=== PATIENT | female | born 1945 | race African-American/Black ===

== ENCOUNTER 2017-01-19 20:27 | Inpatient (IN) | payer MEDICARE, OTHER ==
[~2017-01-19] VITALS: Ht 170.2 cm; Wt 77.1 kg
[2017-01-19] MEDS ORDERED: Azithromycin 500 MG in D5W 275 ML IVPB ONE (20:45)
[2017-01-19] MEDS ORDERED: Azithromycin 500mg Inj IV ONE (20:58)
[2017-01-19] MEDS: Albuterol ud Inhalation HHN SCH ×3 (21:12→21:47)
[2017-01-19] MEDS: Ipratropium 0.02% Inh Soln 2.5ml UD HHN SCH ×3 (21:12→21:47)
[2017-01-19 21:13] LABS: MEAN CORPUSCULAR HEMOGLOBIN 32.4 PG (27.0-31.0); MEAN CORPUSCULAR HGB CONC 30.5 G/DL (32.0-36.0); MEAN CORPUSCULAR VOLUME 106 FL (80-99); MEAN PLATELET VOLUME 8.2 FL (6.5-10.1); PLATELET COUNT 169 K/UL (150-450); RED BLOOD COUNT 3.93 M/UL (4.20-5.40); RED CELL DISTRIBUTION WIDTH 13.6 % (11.6-14.8); WHITE BLOOD COUNT 9.9 K/UL (4.8-10.8)
--- NOTE | 2017-01-19 21:25 | Emergency Room Report ---
History of Present Illness General Chief Complaint: Dyspnea/Respdistress Source: Patient, Medical Record Present Illness HPI 58YOF BIBEMS for 3 days of cough, SOB Denies fever/chills Known COPD on 5L O2 NC at home Also with HTN Allergies: Coded Allergies: No Known Allergies (Unverified , 01/19/17) Patient History Past Medical History: HTN, COPD Past Surgical History: none Pertinent Family History: none Social History: Denies: alcohol use, drug use, smoking Last Menstrual Period: post Now: No Immunizations: UTD Reviewed Nursing Documentation: PMH: Agreed, PSxH: Agreed Nursing Documentation-PMH Past Medical History: No History, Except For Hx Hypertension: Yes Hx COPD: Yes Review of Systems All Other Systems: negative except mentioned in HPI Physical Exam Vital Signs Date Time Temp Pulse Resp B/P Pulse Ox O2 Delivery O2 Flow Rate FiO2 01/19/17 20:22 97.9 120 30 165/96 87 Room Air Sp02 EP Interpretation: reviewed, abnormal General Appearance: normal inspection, well appearing, no apparent distress, alert, GCS 15, non-toxic Head: normocephalic, atraumatic Eyes: bilateral eye EOMI, bilateral eye PERRL ENT: normal ENT inspection, hearing grossly normal, normal voice Neck: normal inspection Respiratory: normal inspection, lungs clear, no respiratory distress, no retraction, no accessory muscle use, no wheezing, decreased breath sounds, speaking full sentences Cardiovascular #1: regular rate, rhythm, no edema Gastrointestinal: normal inspection, normal bowel sounds, non tender, soft, no guarding, no hernia Genitourinary: no CVA tenderness Musculoskeletal: normal inspection, back normal, normal range of motion, Edelmira' s Sign negative Neurologic: normal inspection, alert, oriented x3, responsive, circus roustabout III-XII nml as tested, motor strength/tone normal, speech normal Psychiatric: normal inspection, judgement/insight normal, mood/affect normal Skin: normal inspection, normal color, no rash Medical Decision Making Medicare Attestation I Aspen Hatfield MD hereby attest that the medical record entry for date of service, 01/18/17 accurately reflects signatures/notations that I made in my capacity as MD when I treated/diagnosed the above listed Medicare beneficiary. I attest that this information is true, accurate and complete to the best of my knowledge. I understand that any falsification, omission, or concealment of material fact may subject me to administrative, civil, or criminal liability. This patient warrants hospital admission for extreme of age and has a condition that cannot be treated as outpatient. Diagnostic Impression: Primary Impression: Dyspnea Qualified Codes: R06.00 - Dyspnea, unspecified Additional Impression: COPD with acute exacerbation ER Course COPD exacerbation - VS with hypoxia - Labs: No leuks. H&h stable. No metabolic abnormalities. Mild elevation in CO2 - CXR: No obvious PNA - ECG c/w obstructive lung disease otherwise NSR. No ischemia - Improved with nebs, steroids - IV Azithro given - Blood Cx pending Endorsed to Dr Pozo for admission at 930pm EKG Diagnostic Results Rate: normal Rhythm: NSR ST Segments: no acute changes Other Impression RA enlargement ASA given to the pt in ED: No Rhythm Strip Diag. Results EP Interpretation: yes Rate: 90 Rhythm: NSR, no PVC's, no ectopy Chest X-Ray Diagnostic Results Chest X-Ray Diagnostic Results : Chest X-Ray Ordered: Yes # of Views/Limited/Complete: 1 View Indication: Shortness of Breath EP Interpretation: Yes Interpretation: no consolidation, no effusion, no pneumothorax, no acute cardiopulmonary disease Impression: No acute disease Interpreting ER Provider: Electronically signed by Dr Hatfield Last Vital Signs Date Time Temp Pulse Resp B/P Pulse Ox O2 Delivery O2 Flow Rate FiO2 01/19/17 20:37 120 30 Room Air 01/19/17 20:22 97.9 165/96 87 Status: improved Disposition: ADMITTED INPATIENT Condition: Serious Scripts Unable to Obtain Active Prescriptions or Reported Meds ASPEN HATFIELD M.D. Jan 19, 2017 21:25
[2017-01-19 21:29] LABS: ALANINE AMINOTRANSFERASE 9 U/L (3-33); ALBUMIN/GLOBULIN RATIO 1.7 (1.0-2.7); ASPARTATE AMINO TRANSFERASE 18 U/L (5-40); CALCIUM 9.9 mg/dL (8.6-10.2); CHLORIDE 91 mEQ/L (98-107); CREATININE 1.1 mg/dL (0.5-0.9); HEMOLYSIS 55; POTASSIUM 4.4 mEQ/L (3.4-4.9); SODIUM 145 mEQ/L (135-145); TOTAL PROTEIN 7.1 g/dL (6.6-8.7); TROPONIN I < 0.30 ng/mL (<=0.30)
[2017-01-19 21:45] LABS: ANION GAP 12 (5-15)
[2017-01-19 21:54] LABS: BAND NEUTROPHILS % (MANUAL) 3 % (0-8); BASOPHILS % (MANUAL) 0 % (0-2); CARBON DIOXIDE 42 mEQ/L (20-30); EOSINOPHILS % (MANUAL) 0 % (0-3); GLOMERULAR FILTRATION RATE > 60 mL/min (>60); LYMPHOCYTES % (MANUAL) 2 % (20-45); MACROCYTES 1+; NEUTROPHILS % (MANUAL) 87 % (45-75); PLATELET ESTIMATE ADEQUATE; PLATELET MORPHOLOGY NORMAL; TOTAL CELLS COUNTED 100
[2017-01-19] MEDS ORDERED: Promethazine/Codeine 5ml UD ORAL PRN (22:30)
[2017-01-19] MEDS ORDERED: DuoNeb 0.5-3(2.5)mg/3ml neb HHN PRN (22:30)
[2017-01-19] MEDS ORDERED: Morphine Sulfate 2mg/ml Inj IVP PRN (22:30)
[2017-01-19] MEDS ORDERED: LORazepam Inj 2mg/ml 1ml IV PRN (22:30)
[2017-01-19] MEDS ORDERED: Ketorolac 30mg Inj IV PRN (22:30)
[2017-01-19] MEDS ORDERED: Nitroglycerin Subl 0.4mg tab (Bottle Of 25) SL PRN (22:30)
[2017-01-19 22:52] VITALS: BP 109/77
[2017-01-19 23:51] VITALS: BP 115/61
[2017-01-20] MEDS: Solu-MEDROL 125mg Inj IV SCH ×5 (01:15→23:40)
[2017-01-20] MEDS ORDERED: Piperacillin/Tazobactam 2.25 GM in D5W 55 ML IV SCH (06:00)
[2017-01-20] MEDS: Zosyn 3.375gm q8h **Extended infusion IVPB SCH ×6 (08:27→21:42)
[2017-01-20 08:28] VITALS: BP 132/63
[2017-01-20] MEDS: Theophylline ER 100mg ORAL SCH ×2 (09:06→20:37)
[2017-01-20] MEDS: Heparin 5000 units/ml inj SUBQ SCH ×2 (09:07→20:39)
--- NOTE | 2017-01-20 09:12 | Diagnostic Imaging Report ---
Indications: Shortness of breath Technique: Portable AP chest Findings: Comparison: None Cardiac silhouette enlarged. Mild pulmonary vascular redistribution, bilateral interstitial prominence. No pleural abnormality. Aortic arch mildly calcified. Osteophytes thoracic spine. IMPRESSION: Findings suggest mild congestive heart failure Aortosclerosis Degenerative spondylosis
[2017-01-20 12:00] VITALS: BP 125/61
--- NOTE | 2017-01-20 13:21 | History and Physical ---
History of Present Illness General Date patient seen: Jan 20, 2017 Reason for Hospitalization: Dyspnea/Respdistress Present Illness HPI 71 year old female with hx of COPD, smoking, presented to ER by paramedics with CC of SOB, for a few days. She doesn't have any phlegm. doesn't recall having fever, chills for flue symptoms. She received respiratory treatment, which helped her somewhat. she is admitted for further evaluation. Allergies: Coded Allergies: No Known Allergies (Unverified , 01/19/17) Medication History Unable to Obtain Active Prescriptions or Reported Meds Patient History Healthcare decision maker Resuscitation status Full Code Advanced Directive on File No Past Medical/Surgical History Past Medical/Surgical History: (1) COPD (chronic obstructive pulmonary disease) Review of Systems All Other Systems: negative except mentioned in HPI Physical Exam General Appearance: WD/WN Lines, tubes and drains: peripheral HEENT: normocephalic, atraumatic Neck: non-tender, normal alignment Respiratory/Chest: rhonchi - bilaterally, expiratory wheezing Cardiovascular/Chest: normal peripheral pulses, normal rate Genitourinary/Rectal: normal genital exam Extremities: normal range of motion Last 24 Hour Vital Signs Date Time Temp Pulse Resp B/P Pulse Ox O2 Delivery O2 Flow Rate FiO2 01/20/17 12:00 102 01/20/17 08:28 97.5 57 18 132/63 99 Nasal Cannula 3.0 01/20/17 08:01 Nasal Cannula 2.0 28 01/20/17 08:00 86 22 Nasal Cannula 2.0 28 01/20/17 08:00 90 Nasal Cannula 2.0 28 01/20/17 08:00 101 01/20/17 05:15 Nasal Cannula 2.0 28 01/20/17 05:14 92 Nasal Cannula 2.0 28 01/20/17 05:13 81 20 Nasal Cannula 2.0 28 01/20/17 04:40 3.0 01/20/17 04:00 87 01/20/17 00:00 102 01/20/17 00:00 3.0 01/19/17 23:51 97.7 89 20 115/61 93 Room Air 01/19/17 23:29 97.9 30 109/77 87 Room Air 01/19/17 22:52 97.9 30 109/77 87 Room Air 01/19/17 20:37 120 30 Room Air 01/19/17 20:22 97.9 120 30 165/96 87 Room Air Intake and Output 01/19/17 01/20/17 19:00 07:00 Intake Total 0 ml Balance 0 ml Intake Oral 0 ml # Voids 3 Laboratory Tests Test 01/19/17 20:57 White Blood Count 9.9 K/UL (4.8-10.8) Red Blood Count 3.93 M/UL (4.20-5.40) L Hemoglobin 12.7 G/DL (12.0-16.0) Hematocrit 41.7 % (37.0-47.0) Mean Corpuscular Volume 106 FL (80-99) H Mean Corpuscular Hemoglobin 32.4 PG (27.0-31.0) H Mean Corpuscular Hemoglobin Concent 30.5 G/DL (32.0-36.0) L Red Cell Distribution Width 13.6 % (11.6-14.8) Platelet Count 169 K/UL (150-450) Mean Platelet Volume 8.2 FL (6.5-10.1) Neutrophils (%) (Auto) % (45.0-75.0) Lymphocytes (%) (Auto) % (20.0-45.0) Monocytes (%) (Auto) % (1.0-10.0) Eosinophils (%) (Auto) % (0.0-3.0) Basophils (%) (Auto) % (0.0-2.0) Differential Total Cells Counted 100 Neutrophils % (Manual) 87 % (45-75) H Lymphocytes % (Manual) 2 % (20-45) L Monocytes % (Manual) 8 % (1-10) Eosinophils % (Manual) 0 % (0-3) Basophils % (Manual) 0 % (0-2) Band Neutrophils 3 % (0-8) Platelet Estimate Adequate Platelet Morphology Normal Macrocytosis 1+ Sodium Level 145 mEQ/L (135-145) Potassium Level 4.4 mEQ/L (3.4-4.9) Chloride Level 91 mEQ/L (98-107) L Carbon Dioxide Level 42 mEQ/L (20-30) *H Anion Gap 12 (5-15) Blood Urea Nitrogen 16 mg/dL (7-23) Creatinine 1.1 mg/dL (0.5-0.9) H Estimat Glomerular Filtration Rate > 60 mL/min (>60) Glucose Level 166 mg/dL (74-106) H Calcium Level 9.9 mg/dL (8.6-10.2) Total Bilirubin 0.4 mg/dL (0.0-1.2) Aspartate Amino Transf (AST/SGOT) 18 U/L (5-40) Alanine Aminotransferase (ALT/SGPT) 9 U/L (3-33) Alkaline Phosphatase 62 U/L (35-104) Total Creatine Kinase 58 U/L (26-140) Creatine Kinase MB 2.0 ng/mL (< 3.8) Creatine Kinase MB Relative Index 3.4 Troponin I < 0.30 ng/mL (<=0.30) Pro-B-Type Natriuretic Peptide 347 pg/mL (0-125) H Total Protein 7.1 g/dL (6.6-8.7) Albumin 4.5 g/dL (3.5-5.2) Globulin 2.6 g/dL Albumin/Globulin Ratio 1.7 (1.0-2.7) Height (Feet): 5 Height (Inches): 7.00 Weight (Pounds): 170 Medications Current Medications Medications (Trade) Dose Ordered Sig/Moose Route PRN Reason Start Time Stop Time Status Last Admin Dose Admin Albuterol/ Ipratropium (DuoNeb 0.5-3(2.5)mg/3ml) 3 ml Q4H PRN HHN dyspnea 01/19/17 22:30 01/24/17 22:29 Dextrose STAT PRN IV Hypoglycemia 01/19/17 22:30 02/18/17 22:29 Heparin Sodium (Porcine) (Heparin 5000 units/ml) 5,000 units EVERY 12 HOURS SUBQ 01/20/17 09:00 02/19/17 08:59 01/20/17 09:07 Ketorolac Tromethamine (Toradol 30mg) 30 mg Q8H PRN IV moderate pain 4-6 01/19/17 22:30 01/24/17 22:29 Lorazepam (Ativan 2mg/ml 1ml) 0.5 mg Q4H PRN IV For Anxiety 01/19/17 22:30 01/26/17 22:29 Methylprednisolone Sodium Succinate (Solu-MEDROL) 60 mg EVERY 6 HOURS IV 01/20/17 00:00 02/19/17 00:00 01/20/17 12:20 Morphine Sulfate (Morphine Sulfate) 2 mg Q4H PRN IVP severe pain 7-10 01/19/17 22:30 01/26/17 22:29 Nitroglycerin (Ntg) 0.4 mg Q5M X 3 DOSES PRN SL Prn Chest Pain 01/19/17 22:30 02/18/17 22:29 Ondansetron HCl (Zofran) 4 mg Q6H PRN IVP Nausea & Vomiting 01/19/17 22:30 02/18/17 22:29 Piperacillin Sod/ Tazobactam Sod/ Dextrose (Zosyn/D5W) 110 ml @ 27.5 mls/hr EVERY 8 HOURS IVPB 01/20/17 06:00 01/27/17 05:59 01/20/17 08:27 Promethazine HCl/ Codeine (Phenergan with Codeine) 5 ml Q6H PRN ORAL cough 01/19/17 22:30 02/18/17 22:29 Temazepam (Restoril) 15 mg HSPRN PRN ORAL Insomnia 01/19/17 22:30 01/26/17 22:29 Theophylline (Bro-Dur) 100 mg EVERY 12 HOURS ORAL 01/20/17 09:00 02/19/17 08:59 01/20/17 09:06 Assessment/Plan Problem List: (1) COPD with acute exacerbation ICD Codes: J44.1 - Chronic obstructive pulmonary disease with (acute) exacerbation SNOMED: 104437576 (2) Purulent bronchitis ICD Codes: J41.1 - Mucopurulent chronic bronchitis SNOMED: 16632369 (3) Cardiomegaly ICD Codes: I51.7 - Cardiomegaly SNOMED: 2510529 Assessment/Plan IV steroids sputum for c/s IV abx echo Cardiac evaluation titrate fio2 to sat of 92% KAYLI FARIAS Jan 20, 2017 13:21
--- NOTE | 2017-01-20 15:42 | Cardiology Progress Note ---
Assessment/Plan Assessment/Plan [id number] Objective Last 24 Hour Vital Signs Date Time Temp Pulse Resp B/P Pulse Ox O2 Delivery O2 Flow Rate FiO2 01/20/17 12:00 98.2 90 22 125/61 95 Nasal Cannula 3.0 01/20/17 12:00 102 01/20/17 08:28 97.5 57 18 132/63 99 Nasal Cannula 3.0 01/20/17 08:01 Nasal Cannula 2.0 28 01/20/17 08:00 86 22 Nasal Cannula 2.0 01/20/17 08:00 90 Nasal Cannula 2.0 28 01/20/17 08:00 101 01/20/17 05:15 Nasal Cannula 2.0 28 01/20/17 05:14 92 Nasal Cannula 2.0 01/20/17 05:13 81 20 Nasal Cannula 2.0 01/20/17 04:40 3.0 01/20/17 04:00 87 01/20/17 00:00 102 01/20/17 00:00 3.0 01/19/17 23:51 97.7 89 20 115/61 93 Room Air 01/19/17 23:29 97.9 30 109/77 87 Room Air 01/19/17 22:52 97.9 30 109/77 87 Room Air 01/19/17 20:37 120 30 Room Air 01/19/17 20:22 97.9 120 30 165/96 87 Room Air Intake and Output 01/19/17 01/20/17 19:00 07:00 Intake Total 0 ml Balance 0 ml Intake Oral 0 ml # Voids 3 Laboratory Tests Test 01/19/17 20:57 White Blood Count 9.9 K/UL (4.8-10.8) Red Blood Count 3.93 M/UL (4.20-5.40) L Hemoglobin 12.7 G/DL (12.0-16.0) Hematocrit 41.7 % (37.0-47.0) Mean Corpuscular Volume 106 FL (80-99) H Mean Corpuscular Hemoglobin 32.4 PG (27.0-31.0) H Mean Corpuscular Hemoglobin Concent 30.5 G/DL (32.0-36.0) L Red Cell Distribution Width 13.6 % (11.6-14.8) Platelet Count 169 K/UL (150-450) Mean Platelet Volume 8.2 FL (6.5-10.1) Neutrophils (%) (Auto) % (45.0-75.0) Lymphocytes (%) (Auto) % (20.0-45.0) Monocytes (%) (Auto) % (1.0-10.0) Eosinophils (%) (Auto) % (0.0-3.0) Basophils (%) (Auto) % (0.0-2.0) Differential Total Cells Counted 100 Neutrophils % (Manual) 87 % (45-75) H Lymphocytes % (Manual) 2 % (20-45) L Monocytes % (Manual) 8 % (1-10) Eosinophils % (Manual) 0 % (0-3) Basophils % (Manual) 0 % (0-2) Band Neutrophils 3 % (0-8) Platelet Estimate Adequate Platelet Morphology Normal Macrocytosis 1+ Sodium Level 145 mEQ/L (135-145) Potassium Level 4.4 mEQ/L (3.4-4.9) Chloride Level 91 mEQ/L (98-107) L Carbon Dioxide Level 42 mEQ/L (20-30) *H Anion Gap 12 (5-15) Blood Urea Nitrogen 16 mg/dL (7-23) Creatinine 1.1 mg/dL (0.5-0.9) H Estimat Glomerular Filtration Rate > 60 mL/min (>60) Glucose Level 166 mg/dL (74-106) H Calcium Level 9.9 mg/dL (8.6-10.2) Total Bilirubin 0.4 mg/dL (0.0-1.2) Aspartate Amino Transf (AST/SGOT) 18 U/L (5-40) Alanine Aminotransferase (ALT/SGPT) 9 U/L (3-33) Alkaline Phosphatase 62 U/L (35-104) Total Creatine Kinase 58 U/L (26-140) Creatine Kinase MB 2.0 ng/mL (< 3.8) Creatine Kinase MB Relative Index 3.4 Troponin I < 0.30 ng/mL (<=0.30) Pro-B-Type Natriuretic Peptide 347 pg/mL (0-125) H Total Protein 7.1 g/dL (6.6-8.7) Albumin 4.5 g/dL (3.5-5.2) Globulin 2.6 g/dL Albumin/Globulin Ratio 1.7 (1.0-2.7) JAZLYN PARADA Jan 20, 2017 15:42
--- NOTE | 2017-01-20 16:06 | Consultation ---
History of Present Illness General Chief Complaint: Dyspnea/Respdistress Present Illness HPI the pt is 71 yo female who came with shortness of breath. I was consulted in er the pt was anxious and stated that she cannot breath. the pt legitimately has copd. she has episodes of anxiety and insomnia. the pt is stable at baseline she was prescribed ativan Allergies: Coded Allergies: No Known Allergies (Unverified , 01/19/17) Medication History Unable to Obtain Active Prescriptions or Reported Meds Patient History History Provided By: Patient, Significant Other, PMD Healthcare decision maker Resuscitation status Full Code Advanced Directive on File No Past Medical/Surgical History Past Medical/Surgical History: (1) Dyspnea (2) COPD (chronic obstructive pulmonary disease) (3) Purulent bronchitis (4) Cardiomegaly (5) COPD with acute exacerbation Review of Systems Constitutional: Reports: malaise, weakness Psychiatric: Reports: anxiety, prior hx Physical Exam General Appearance: no apparent distress, alert, mild distress Neurologic: alert, oriented x 3, responsive, depressed affect Last 24 Hour Vital Signs Date Time Temp Pulse Resp B/P Pulse Ox O2 Delivery O2 Flow Rate FiO2 01/20/17 12:00 98.2 90 22 125/61 95 Nasal Cannula 3.0 01/20/17 12:00 102 01/20/17 08:28 97.5 57 18 132/63 99 Nasal Cannula 3.0 01/20/17 08:01 Nasal Cannula 2.0 28 01/20/17 08:00 86 22 Nasal Cannula 2.0 28 01/20/17 08:00 90 Nasal Cannula 2.0 28 01/20/17 08:00 101 01/20/17 05:15 Nasal Cannula 2.0 28 01/20/17 05:14 92 Nasal Cannula 2.0 28 01/20/17 05:13 81 20 Nasal Cannula 2.0 28 01/20/17 04:40 3.0 01/20/17 04:00 87 01/20/17 00:00 102 01/20/17 00:00 3.0 01/19/17 23:51 97.7 89 20 115/61 93 Room Air 01/19/17 23:29 97.9 30 109/77 87 Room Air 01/19/17 22:52 97.9 30 109/77 87 Room Air 01/19/17 20:37 120 30 Room Air 01/19/17 20:22 97.9 120 30 165/96 87 Room Air Intake and Output 01/19/17 01/20/17 19:00 07:00 Intake Total 0 ml Balance 0 ml Intake Oral 0 ml # Voids 3 Laboratory Tests Test 01/19/17 20:57 White Blood Count 9.9 K/UL (4.8-10.8) Red Blood Count 3.93 M/UL (4.20-5.40) L Hemoglobin 12.7 G/DL (12.0-16.0) Hematocrit 41.7 % (37.0-47.0) Mean Corpuscular Volume 106 FL (80-99) H Mean Corpuscular Hemoglobin 32.4 PG (27.0-31.0) H Mean Corpuscular Hemoglobin Concent 30.5 G/DL (32.0-36.0) L Red Cell Distribution Width 13.6 % (11.6-14.8) Platelet Count 169 K/UL (150-450) Mean Platelet Volume 8.2 FL (6.5-10.1) Neutrophils (%) (Auto) % (45.0-75.0) Lymphocytes (%) (Auto) % (20.0-45.0) Monocytes (%) (Auto) % (1.0-10.0) Eosinophils (%) (Auto) % (0.0-3.0) Basophils (%) (Auto) % (0.0-2.0) Differential Total Cells Counted 100 Neutrophils % (Manual) 87 % (45-75) H Lymphocytes % (Manual) 2 % (20-45) L Monocytes % (Manual) 8 % (1-10) Eosinophils % (Manual) 0 % (0-3) Basophils % (Manual) 0 % (0-2) Band Neutrophils 3 % (0-8) Platelet Estimate Adequate Platelet Morphology Normal Macrocytosis 1+ Sodium Level 145 mEQ/L (135-145) Potassium Level 4.4 mEQ/L (3.4-4.9) Chloride Level 91 mEQ/L (98-107) L Carbon Dioxide Level 42 mEQ/L (20-30) *H Anion Gap 12 (5-15) Blood Urea Nitrogen 16 mg/dL (7-23) Creatinine 1.1 mg/dL (0.5-0.9) H Estimat Glomerular Filtration Rate > 60 mL/min (>60) Glucose Level 166 mg/dL (74-106) H Calcium Level 9.9 mg/dL (8.6-10.2) Total Bilirubin 0.4 mg/dL (0.0-1.2) Aspartate Amino Transf (AST/SGOT) 18 U/L (5-40) Alanine Aminotransferase (ALT/SGPT) 9 U/L (3-33) Alkaline Phosphatase 62 U/L (35-104) Total Creatine Kinase 58 U/L (26-140) Creatine Kinase MB 2.0 ng/mL (< 3.8) Creatine Kinase MB Relative Index 3.4 Troponin I < 0.30 ng/mL (<=0.30) Pro-B-Type Natriuretic Peptide 347 pg/mL (0-125) H Total Protein 7.1 g/dL (6.6-8.7) Albumin 4.5 g/dL (3.5-5.2) Globulin 2.6 g/dL Albumin/Globulin Ratio 1.7 (1.0-2.7) Height (Feet): 5 Height (Inches): 7.00 Weight (Pounds): 170 Medications Current Medications Medications (Trade) Dose Ordered Sig/Moose Route PRN Reason Start Time Stop Time Status Last Admin Dose Admin Albuterol/ Ipratropium (DuoNeb 0.5-3(2.5)mg/3ml) 3 ml Q4H PRN HHN dyspnea 01/19/17 22:30 01/24/17 22:29 Dextrose STAT PRN IV Hypoglycemia 01/19/17 22:30 02/18/17 22:29 Heparin Sodium (Porcine) (Heparin 5000 units/ml) 5,000 units EVERY 12 HOURS SUBQ 01/20/17 09:00 02/19/17 08:59 01/20/17 09:07 Lorazepam (Ativan 2mg/ml 1ml) 0.5 mg Q4H PRN IV For Anxiety 01/19/17 22:30 01/26/17 22:29 Methylprednisolone Sodium Succinate (Solu-MEDROL) 60 mg EVERY 6 HOURS IV 01/20/17 00:00 02/19/17 00:00 01/20/17 12:20 Morphine Sulfate (Morphine Sulfate) 2 mg Q4H PRN IVP severe pain 7-01/19/17 22:30 01/26/17 22:29 Nitroglycerin (Ntg) 0.4 mg Q5M X 3 DOSES PRN SL Prn Chest Pain 01/19/17 22:30 02/18/17 22:29 Ondansetron HCl (Zofran) 4 mg Q6H PRN IVP Nausea & Vomiting 01/19/17 22:30 02/18/17 22:29 Piperacillin Sod/ Tazobactam Sod/ Dextrose (Zosyn/D5W) 110 ml @ 27.5 mls/hr EVERY 8 HOURS IVPB 01/20/17 06:00 01/27/17 05:59 01/20/17 14:08 Promethazine HCl/ Codeine (Phenergan with Codeine) 5 ml Q6H PRN ORAL cough 01/19/17 22:30 02/18/17 22:29 Temazepam (Restoril) 15 mg HSPRN PRN ORAL Insomnia 01/19/17 22:30 01/26/17 22:29 Theophylline (Bro-Dur) 100 mg EVERY 12 HOURS ORAL 01/20/17 09:00 02/19/17 08:59 01/20/17 09:06 Assessment/Plan Status: stable Status Narrative anxiety d/o due to [facility] cont prn Carl Pendleton M.D. Jan 20, 2017 16:05
[2017-01-20 16:15] VITALS: BP 139/66
--- NOTE | 2017-01-20 16:20 | Cardiology Report ---
APPROVED REPORT EXAM: Two-dimensional and M-mode echocardiogram with Doppler and color Doppler. INDICATION Left Ventricular Function M-Mode DIMENSIONS IVSd1.7 (0.7-1.1cm)Left Atrium (MM)3.0 (1.6-4.0cm) LVDd4.5 (3.5-5.6cm)Aortic Root3.1 (2.0-3.7cm) PWd1.0 (0.7-1.1cm)Aortic Cusp Exc.2.0 (1.5-2.0cm) LVDs1.5 (2.5-4.0cm) PWs2.1 cm Technically difficult study due to poor acoustic windows. Study quality precludes accurate assessment of regional wall motion. Normal left ventricular chamber size, systolic function and wall motion. Left ventricular ejection fraction estimated to be 60-65 %. Mild left ventricular hypertrophy. No evidence of pericardial fat or effusion. All other cardiac chamber sizes are within normal limits. Focal aortic valve sclerosis with adequate cusp excursion. Thickened mitral valve leaflets with normal excursion. Mitral annulus and aortic root calcification. Normal pulmonic valve structure. Normal tricuspid valve structure. IVC dilated at 2.0 cm with physiologic collapse. A color flow and spectral Doppler study was performed and revealed: Trace aortic regurgitation. Trace mitral regurgitation. Mitral diastolic velocities suggest reduced left ventricular relaxation (Grade I). Mild tricuspid regurgitation. Tricuspid systolic velocities suggests peak right ventricular systolic pressure of 83 mmHg, consistent with severe pulmonary hypertension. No pulmonic regurgitation present.
[2017-01-20 17:32] VITALS: BP 139/66
[2017-01-20 17:35] VITALS: BP 139/66
[2017-01-20 20:04] VITALS: BP 150/66
--- NOTE | 2017-01-20 22:45 | Consultation ---
DATE OF CONSULTATION: 01/20/2017 CARDIOLOGY CONSULTATION REFERRING PHYSICIAN: Kevan Pozo M.D. REASON FOR REFERRAL: Shortness breath. HISTORY OF PRESENT ILLNESS: This an elderly female, who is apparently followed by at [facility] and has seen Dr. Wes Andrade recently for pulmonary hypertension. Information has been obtained from the past medical history, has been obtained from the data as well as my discussion with the patient. She tells me that she came to the hospital mainly because they were telling her that she was acting confused and strange, although the emergency room physician's note indicates she was brought by emergency services because of three days of cough and shortness of breath. She does have shortness of breath chronically. She does not have any PND. She uses one pillow. There is no palpitation. No dizziness or lightheadedness except for rare occasions. She thinks she came in because of just confusional state. 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 She also had right heart catheterization showing pulmonary hypertension. They were supposed to have had a meeting to determine her candidacy for administering PH specific medications such as ____ but that meeting the patient is not aware of the results yet. PH specific agents but that meeting has not apparently concluded. ALLERGIES: She is not allergic to any medications. She is allergic only to grass and pollen. SOCIAL HISTORY: She used to be a smoker, she quit five years ago. She does drink alcoholic beverages. She drinks on a weekly basis. No drug use. REVIEW OF SYSTEMS: Constitutional: She feels cold all the time. Pulmonary: Positive for coughing. Gastrointestinal: Negative. Genitourinary: Negative. Neurologic: Numbness and tingling sensation in her feet sometimes. PHYSICAL EXAMINATION: GENERAL: Shows to be an elderly female in no respiratory distress. HEENT: Unremarkable. NECK: Supple. No jugular venous distention. LUNGS: There is decreased breath sounds noted bilaterally. CARDIAC: Regular rate and rhythm. Systolic ejection murmur. No RV lifts, heaves, or thrills noted. ABDOMEN: Soft. Obese. Positive bowel sounds. EXTREMITIES: There is no clubbing or cyanosis, nor there is any edema. NEUROLOGIC: She is awake, alert and responsive, in no apparent respiratory distress. LABORATORY DATA: White count 9.9, hemoglobin 12.7, and platelet count 169,000. Sodium is 145, potassium 4.4, chloride 91, bicarb 42, BUN 16, and creatinine 1.1. Glucose 166. Calcium 9.9. Troponin is less than 0.3. ProBNP is only 347. Chest x-ray performed in the emergency room is interpreted as showing mild congestive heart failure, atherosclerotic changes, and degenerative spondylosis. Telemetry shows sinus rhythm, premature ventricular complexes are noted on some strips. EKG shows sinus rhythm, normal QRS axis, no ST or T wave abnormalities to any significant degree. ASSESSMENT: 1. Pulmonary hypertension, mixed disorder. 2. Chronic obstructive pulmonary disease/emphysema. 3. Pickwickian syndrome, on nocturnal BiPAP. 4. History of systemic hypertension. 5. History of diastolic dysfunction. 6. pulmonary function testing abnormality. 7. Undifferentiated connective tissue disease as a possibility. PLAN: Dr. Pozo, this patient was seen in cardiac consultation. Her laboratory values when compared to [facility] last metabolic panel show a degree of CO2 elevation more than her baseline of 36, 38 that she has had approximately one and four months ago, probably related to CO2 retention. Her troponin was negative. As her proBNP is only 347 speaks of significant component of congestive heart failure that I suspect is from her underlying lung issues that is causing many of her problems. She should be on her usual cardiac medications. She is not on any pulmonary hypertension medications yet until she follows up with Dr. Andrade at [facility]. Quirino Gallo M.D. DR: VANESA JOB#: [id number] CC:
[2017-01-21 00:11] VITALS: BP 136/58
[2017-01-21 03:54] VITALS: BP 146/71
[2017-01-21] MEDS: Solu-MEDROL 125mg Inj IV SCH ×2 (05:48→11:43)
[2017-01-21] MEDS: Zosyn 3.375gm q8h **Extended infusion IVPB SCH ×4 (05:49→13:28)
[2017-01-21 08:21] VITALS: BP 133/93
[2017-01-21] MEDS: Theophylline ER 100mg ORAL SCH ×2 (08:38→22:07)
[2017-01-21] MEDS: Heparin 5000 units/ml inj SUBQ SCH ×2 (08:39→22:08)
[2017-01-21] MEDS ORDERED: Tubing IV Secondary IV ONE (11:19)
[2017-01-21] MEDS ORDERED: NS 275ml ONE (11:19)
[2017-01-21 11:30] VITALS: BP 138/64
[2017-01-21 15:50] VITALS: BP 142/69
--- NOTE | 2017-01-21 16:00 | Progress Note ---
DATE: 01/21/2017 SUBJECTIVE: The patient is doing well. No behavior issues. Continues to have episodes of anxiety, which is manageable with the Ativan. The patient is adamant against being on a new medication. The patient is stable at baseline. MENTAL STATUS EXAMINATION: The patient is alert and oriented x4, cooperative and pleasant. Mood is dysphoric. Affect is constricted. Congruent mood. Thought process is concrete. Thought content, no suicidal or homicidal ideation. ASSESSMENT: Stable anxiety disorder. PLAN: The patient will be continued on p.r.n. Ativan. Carl Garcia M.D. DR: SELENA JOB#: [id number] CC:
--- NOTE | 2017-01-21 16:21 | Cardiology Report ---
APPROVED REPORT EKG Measurement Heart [id number] Normal sinus rhythm Right atrial enlargement Borderline ECG
--- NOTE | 2017-01-21 16:40 | Pulmonology Progress Note ---
Assessment/Plan Problems: (1) COPD with acute exacerbation (2) Purulent bronchitis (3) Cardiomegaly Assessment/Plan improving respiratory treatment decrease steroids check cultures probably dc home in am Subjective Interval Events: less short of breath Allergies: Coded Allergies: No Known Allergies (Unverified , 01/19/17) Objective Last 24 Hour Vital Signs Date Time Temp Pulse Resp B/P Pulse Ox O2 Delivery O2 Flow Rate FiO2 01/21/17 15:50 97.5 91 21 142/69 95 Nasal Cannula 2.0 01/21/17 12:00 86 01/21/17 11:30 97.8 88 21 138/64 96 Nasal Cannula 2.0 01/21/17 08:21 97.5 92 20 133/93 91 Nasal Cannula 01/21/17 08:10 84 20 Nasal Cannula 2.0 01/21/17 08:10 Nasal Cannula 2.0 28 01/21/17 08:10 92 Nasal Cannula 2.0 28 01/21/17 08:00 95 01/21/17 04:00 84 01/21/17 03:54 98.2 92 19 146/71 93 Nasal Cannula 3.0 01/21/17 00:11 98.6 81 19 136/58 96 Nasal Cannula 3.0 01/21/17 00:00 85 01/20/17 20:04 98.6 92 18 150/66 92 Nasal Cannula 3.0 01/20/17 20:00 93 01/20/17 19:30 Nasal Cannula 2.0 28 01/20/17 19:30 82 20 Nasal Cannula 2.0 01/20/17 19:30 91 Nasal Cannula 2.0 01/20/17 17:35 98.2 90 17 139/66 90 Room Air 01/20/17 17:32 98.2 90 17 139/66 90 Room Air Intake and Output 01/20/17 01/21/17 19:00 07:00 Intake Total 1020.0 ml 137.5 ml Balance 1020.0 ml 137.5 ml Intake Oral 800 ml IV Total 220.0 ml 137.5 ml # Voids 3 8 General Appearance: WD/WN HEENT: normocephalic, atraumatic Respiratory/Chest: chest wall non-tender, lungs clear, normal breath sounds Breasts: no masses Cardiovascular: normal peripheral pulses, normal rate Abdomen: normal bowel sounds, soft, non tender Genitourinary: normal external genitalia Extremities: no cyanosis Skin: no rash Neurologic/Psychiatric: business performance specialist II-XII grossly normal Microbiology Date/Time Source Procedure Growth Status 01/20/17 17:30 Sputum Gram Stain - Final Resulted 01/20/17 17:30 Sputum Sputum Culture Pending Resulted Current Medications Medications (Trade) Dose Ordered Sig/Moose Route PRN Reason Start Time Stop Time Status Last Admin Dose Admin Albuterol/ Ipratropium (DuoNeb 0.5-3(2.5)mg/3ml) 3 ml Q4H PRN HHN dyspnea 01/19/17 22:30 01/24/17 22:29 Dextrose STAT PRN IV Hypoglycemia 01/19/17 22:30 02/18/17 22:29 Heparin Sodium (Porcine) (Heparin 5000 units/ml) 5,000 units EVERY 12 HOURS SUBQ 01/20/17 09:00 02/19/17 08:59 01/21/17 08:39 Lorazepam (Ativan 2mg/ml 1ml) 0.5 mg Q4H PRN IV For Anxiety 01/19/17 22:30 01/26/17 22:29 Methylprednisolone Sodium Succinate (Solu-MEDROL) 60 mg EVERY 6 HOURS IV 01/20/17 00:00 02/19/17 00:00 01/21/17 11:43 Morphine Sulfate (Morphine Sulfate) 2 mg Q4H PRN IVP severe pain 7-10 01/19/17 22:30 01/26/17 22:29 Nitroglycerin (Ntg) 0.4 mg Q5M X 3 DOSES PRN SL Prn Chest Pain 01/19/17 22:30 02/18/17 22:29 Ondansetron HCl (Zofran) 4 mg Q6H PRN IVP Nausea & Vomiting 01/19/17 22:30 02/18/17 22:29 Piperacillin Sod/ Tazobactam Sod/ Dextrose (Zosyn/D5W) 110 ml @ 27.5 mls/hr EVERY 8 HOURS IVPB 01/20/17 06:00 01/27/17 05:59 01/21/17 13:28 Promethazine HCl/ Codeine (Phenergan with Codeine) 5 ml Q6H PRN ORAL cough 01/19/17 22:30 02/18/17 22:29 Temazepam (Restoril) 15 mg HSPRN PRN ORAL Insomnia 01/19/17 22:30 01/26/17 22:29 Theophylline (Bro-Dur) 100 mg EVERY 12 HOURS ORAL 01/20/17 09:00 02/19/17 08:59 01/21/17 08:38 KAYLI FARIAS Jan 21, 2017 16:40
--- NOTE | 2017-01-21 18:43 | Consultation ---
History of Present Illness General Date patient seen: Jan 21, 2017 Time patient seen: 18:43 Chief Complaint: Dyspnea/Respdistress Referring physician: Dr. Pozo Reason for Consultation: med mgmt Present Illness HPI 71y/o female with pmh of COPD, chronic hypoxic respiratory failure on home O2 ( 3L via nC), tobacco abuse, pulm HTN, Pickwickian syndrome on BiPAP qHS, HTN, chronic diastolic heart failure who presnets with increased SOB. Pt noted to be increasing SOB and slightly confused per family. She denies f/c, n/v, d/c, chest pain. Has a chronic cough but denies changes in sputum. Pt was admitted and treated for COPD exacerbation w/ IV abx, IV steroids. Pt states she is feeling better. Allergies: Coded Allergies: No Known Allergies (Unverified , 01/19/17) Medication History Unable to Obtain Active Prescriptions or Reported Meds Patient History Healthcare decision maker Resuscitation status Full Code Advanced Directive on File No Past Medical/Surgical History Past Medical/Surgical History: (1) COPD (chronic obstructive pulmonary disease) Family History Family History: (1) No significant family history Social History Social History: (1) Lives with family Review of Systems Constitutional: Reports: no symptoms Eye: Reports: no symptoms ENT: Reports: no symptoms Respiratory: Reports: cough, shortness of breath Cardiovascular: Reports: no symptoms Gastrointestinal: Reports: no symptoms Genitourinary: Reports: no symptoms Musculoskeletal: Reports: no symptoms Skin: Reports: no symptoms Psychiatric: Reports: no symptoms Neurological: Reports: no symptoms Endocrine: Reports: no symptoms Hematologic/Lymphatic: Reports: no symptoms Physical Exam Physical Exam Narrative General Appearance: WD/WN Lines, tubes and drains: peripheral HEENT: normocephalic, atraumatic Neck: non-tender, normal alignment Respiratory/Chest: rhonchi - bilaterally, expiratory wheezing Cardiovascular/Chest: normal peripheral pulses, normal rate Genitourinary/Rectal: normal genital exam Extremities: normal range of motion Last 24 Hour Vital Signs Date Time Temp Pulse Resp B/P Pulse Ox O2 Delivery O2 Flow Rate FiO2 01/21/17 16:00 111 01/21/17 15:50 97.5 91 21 142/69 95 Nasal Cannula 2.0 01/21/17 12:00 86 01/21/17 11:30 97.8 88 21 138/64 96 Nasal Cannula 2.0 8/2/17 08:21 97.5 92 20 133/93 91 Nasal Cannula 01/21/17 08:10 84 20 Nasal Cannula 2.0 28 01/21/17 08:10 Nasal Cannula 2.0 28 01/21/17 08:10 92 Nasal Cannula 2.0 28 01/21/17 08:00 95 01/21/17 04:00 84 01/21/17 03:54 98.2 92 19 146/71 93 Nasal Cannula 3.0 01/21/17 00:11 98.6 81 19 136/58 96 Nasal Cannula 3.0 01/21/17 00:00 85 01/20/17 20:04 98.6 92 18 150/66 92 Nasal Cannula 3.0 01/20/17 20:00 93 01/20/17 19:30 Nasal Cannula 2.0 28 01/20/17 19:30 82 20 Nasal Cannula 2.0 28 01/20/17 19:30 91 Nasal Cannula 2.0 28 Intake and Output 01/20/17 01/21/17 19:00 07:00 Intake Total 1020.0 ml 137.5 ml Balance 1020.0 ml 137.5 ml Intake Oral 800 ml IV Total 220.0 ml 137.5 ml # Voids 3 8 Height (Feet): 5 Height (Inches): 7.00 Weight (Pounds): 170 Medications Current Medications Medications (Trade) Dose Ordered Sig/Moose Route PRN Reason Start Time Stop Time Status Last Admin Dose Admin Albuterol/ Ipratropium (DuoNeb 0.5-3(2.5)mg/3ml) 3 ml Q4H PRN HHN dyspnea 01/19/17 22:30 01/24/17 22:29 Dextrose STAT PRN IV Hypoglycemia 01/19/17 22:30 02/18/17 22:29 Heparin Sodium (Porcine) (Heparin 5000 units/ml) 5,000 units EVERY 12 HOURS SUBQ 01/20/17 09:00 02/19/17 08:59 01/21/17 08:39 Lorazepam (Ativan 2mg/ml 1ml) 0.5 mg Q4H PRN IV For Anxiety 01/19/17 22:30 01/26/17 22:29 Methylprednisolone Sodium Succinate (Solu-MEDROL) 60 mg DAILY IV 01/22/17 09:00 9/2/17 08:59 Morphine Sulfate (Morphine Sulfate) 2 mg Q4H PRN IVP severe pain 7-10 01/19/17 22:30 01/26/17 22:29 Nitroglycerin (Ntg) 0.4 mg Q5M X 3 DOSES PRN SL Prn Chest Pain 01/19/17 22:30 02/18/17 22:29 Ondansetron HCl (Zofran) 4 mg Q6H PRN IVP Nausea & Vomiting 01/19/17 22:30 02/18/17 22:29 Piperacillin Sod/ Tazobactam Sod/ Dextrose (Zosyn/D5W) 110 ml @ 27.5 mls/hr EVERY 8 HOURS IVPB 01/20/17 06:00 01/27/17 05:59 01/21/17 13:28 Promethazine HCl/ Codeine (Phenergan with Codeine) 5 ml Q6H PRN ORAL cough 01/19/17 22:30 02/18/17 22:29 Temazepam (Restoril) 15 mg HSPRN PRN ORAL Insomnia 01/19/17 22:30 01/26/17 22:29 Theophylline (Bro-Dur) 100 mg EVERY 12 HOURS ORAL 01/20/17 09:00 02/19/17 08:59 01/21/17 08:38 Assessment/Plan Problem List: (1) COPD with acute exacerbation ICD Codes: J44.1 - Chronic obstructive pulmonary disease with (acute) exacerbation SNOMED: 847033666 (2) Purulent bronchitis ICD Codes: J41.1 - Mucopurulent chronic bronchitis SNOMED: 96216928 (3) Pulmonary HTN ICD Codes: I27.2 - Other secondary pulmonary hypertension SNOMED: 31454654 (4) Chronic hypoxemic respiratory failure ICD Codes: J96.11 - Chronic respiratory failure with hypoxia SNOMED: 802746948 (5) Pickwickian syndrome ICD Codes: E66.2 - Morbid (severe) obesity with alveolar hypoventilation SNOMED: 994964558 Status: stable Assessment/Plan Appreciate pulm and cardiology rec's Cont abx and steroids per pulm Nebs ATC and PRN BiPAP qHS and PRN Cont O2, titrate to spO2 88-92% Cont home meds DC planning DVT Prophylaxis: SCD, HSQ Code Status: Full Hospital Classification Declaration: Based on this initial evaluation, and depending on the patient's clinical course, I anticipate that this patient will require hospitalization for 1-2 days for COPD exacerbation and close respiratory /hemodynamic monitoring. Disposition: Once the patient is stable to leave the hospital, I anticipate the patient will likely be discharged to the following environment: home with vs SNF I spent 70 minutes on this patient's case, and 36 minutes were dedicated to counseling and/or care coordination. Discussed with patient/family, nursing staff, SW/CM, pulm, cardiology regarding clinical status, treatment course, and disposition planning. Time of note may not reflect time of encounter. Jazmin Alvarez M.D. Jan 21, 2017 18:43
[2017-01-21 20:00] VITALS: BP 145/71
[2017-01-21] MEDS ORDERED: Nitroglycerin Subl 0.4mg tab (Bottle Of 25) SL PRN (20:15)
--- NOTE | 2017-01-21 20:16 | Cardiology Progress Note ---
Assessment/Plan Assessment/Plan 1. Pulmonary hypertension, mixed disorder. 2. Chronic obstructive pulmonary disease/emphysema. 3. Pickwickian syndrome, on nocturnal BiPAP. 4. History of systemic hypertension. 5. History of diastolic dysfunction. 6. Mixed pulmonary function testing abnormality. 7. Undifferentiated connective tissue disease as a possibility no chf remains with decreased bs but feel much improved tele sinus improved resprtiatyory status agree with dc plan in am outpt fu Subjective Cardiovascular: Denies: chest pain Respiratory: Reports: shortness of breath - is bettter Gastrointestinal/Abdominal: Denies: abdominal pain Genitourinary: Denies: burning Objective Last 24 Hour Vital Signs Date Time Temp Pulse Resp B/P Pulse Ox O2 Delivery O2 Flow Rate FiO2 01/21/17 16:00 111 01/21/17 15:50 97.5 91 21 142/69 95 Nasal Cannula 2.0 01/21/17 12:00 86 01/21/17 11:30 97.8 88 21 138/64 96 Nasal Cannula 2.0 01/21/17 08:21 97.5 92 20 133/93 91 Nasal Cannula 01/21/17 08:10 84 20 Nasal Cannula 2.0 28 01/21/17 08:10 Nasal Cannula 2.0 28 01/21/17 08:10 92 Nasal Cannula 2.0 28 01/21/17 08:00 95 01/21/17 04:00 84 01/21/17 03:54 98.2 92 19 146/71 93 Nasal Cannula 3.0 01/21/17 00:11 98.6 81 19 136/58 96 Nasal Cannula 3.0 01/21/17 00:00 85 General Appearance: no apparent distress, alert Neck: supple Cardiovascular: normal rate, regular rhythm Respiratory/Chest: decreased breath sounds Abdomen: normal bowel sounds, non tender, soft Extremities: no swelling Intake and Output 01/20/17 01/21/17 19:00 07:00 Intake Total 1020.0 ml 137.5 ml Balance 1020.0 ml 137.5 ml Intake Oral 800 ml IV Total 220.0 ml 137.5 ml # Voids 3 8 Microbiology Date/Time Source Procedure Growth Status 01/20/17 17:30 Sputum Gram Stain - Final Resulted 01/20/17 17:30 Sputum Sputum Culture Pending Resulted JAZLYN PARADA Jan 21, 2017 20:16
[2017-01-21] MEDS: Piperacillin/Tazobactam 3.375 GM in D5W 110 ML IVPB SCH (22:06)
[2017-01-21] MEDS ORDERED: LORazepam Inj 2mg/ml 1ml IV PRN (22:30)
[2017-01-21] MEDS ORDERED: DuoNeb 0.5-3(2.5)mg/3ml neb HHN PRN (22:30)
[2017-01-21] MEDS ORDERED: Promethazine/Codeine 5ml UD ORAL PRN (22:30)
[2017-01-21] MEDS ORDERED: Morphine Sulfate 2mg/ml Inj IVP PRN (22:30)
[2017-01-22] VITALS: BP 131/75
[2017-01-22 04:00] VITALS: BP 141/80
[2017-01-22] MEDS: Piperacillin/Tazobactam 3.375 GM in D5W 110 ML IVPB SCH ×2 (06:10→16:16)
[2017-01-22 07:07] LABS: BASOPHILS % (AUTO) 1.3 % (0.0-2.0); LYMPHOCYTES % (AUTO) 9.2 % (20.0-45.0); MEAN CORPUSCULAR HEMOGLOBIN 31.3 PG (27.0-31.0); MEAN CORPUSCULAR HGB CONC 29.6 G/DL (32.0-36.0); MEAN CORPUSCULAR VOLUME 106 FL (80-99); MONOCYTES % (AUTO) 6.8 % (1.0-10.0); NEUTROPHILS % (AUTO) 82.7 % (45.0-75.0); PLATELET COUNT 196 K/UL (150-450); RED BLOOD COUNT 3.86 M/UL (4.20-5.40); RED CELL DISTRIBUTION WIDTH 13.9 % (11.6-14.8); WHITE BLOOD COUNT 11.7 K/UL (4.8-10.8)
[2017-01-22 07:25] LABS: ALANINE AMINOTRANSFERASE 8 U/L (3-33); ALBUMIN/GLOBULIN RATIO 1.3 (1.0-2.7); ASPARTATE AMINO TRANSFERASE 12 U/L (5-40); CALCIUM 9.6 mg/dL (8.6-10.2); CHLORIDE 93 mEQ/L (98-107); CREATININE 0.9 mg/dL (0.5-0.9); GLOMERULAR FILTRATION RATE > 60 mL/min (>60); HEMOLYSIS 4; POTASSIUM 3.7 mEQ/L (3.4-4.9); SODIUM 143 mEQ/L (135-145); TOTAL PROTEIN 6.7 g/dL (6.6-8.7)
[2017-01-22 07:38] LABS: ANION GAP 5 (5-15)
[2017-01-22 07:45] LABS: CARBON DIOXIDE 45 mEQ/L (20-30)
[2017-01-22 08:00] VITALS: BP 135/75
[2017-01-22] MEDS: Theophylline ER 100mg ORAL SCH (08:22)
[2017-01-22] MEDS: Heparin 5000 units/ml inj SUBQ SCH (08:23)
[2017-01-22] MEDS ORDERED: Solu-MEDROL 125mg Inj IV SCH ×2 (09:00)
--- NOTE | 2017-01-22 11:11 | Diagnostic Imaging Report ---
Indication: Dyspnea Comparison: 01/19/17 A single view chest radiograph was obtained. Findings: The heart is mildly enlarged. Bones are osteopenic. Pulmonary vascularity is mildly prominent but there is no overt CHF and the findings appear stable. Impression: No overt CHF. Please correlate clinically
[2017-01-22 12:00] VITALS: BP 152/78
[2017-01-22 16:19] VITALS: BP 151/79
--- NOTE | 2017-01-22 19:28 | Pulmonology Progress Note ---
Assessment/Plan Problems: (1) COPD with acute exacerbation (2) Purulent bronchitis (3) Cardiomegaly Assessment/Plan improving respiratory treatment dc home today needs close outpatient f/u for severe pulmonary hypertension, pt will always be short of breath Subjective ROS Limited/Unobtainable: No Constitutional: Reports: no symptoms HEENT: Repors: no symptoms Respiratory: Reports: no symptoms Cardiovascular: Reports: no symptoms Gastrointestinal/Abdominal: Reports: no symptoms Allergies: Coded Allergies: No Known Allergies (Unverified , 01/19/17) Objective Last 24 Hour Vital Signs Date Time Temp Pulse Resp B/P Pulse Ox O2 Delivery O2 Flow Rate FiO2 01/22/17 16:19 97.9 90 19 151/79 94 Nasal Cannula 2.0 01/22/17 12:00 98.2 86 18 152/78 93 Nasal Cannula 01/22/17 09:14 98 Nasal Cannula 2.0 01/22/17 09:14 Nasal Cannula 2.0 01/22/17 09:13 86 20 Nasal Cannula 2.0 01/22/17 08:00 98.1 88 18 135/75 93 Room Air 01/22/17 04:00 98.2 84 20 141/80 97 Nasal Cannula 2.0 01/22/17 00:00 98.2 97 20 131/75 91 Room Air 01/21/17 20:32 Nasal Cannula 2.0 28 01/21/17 20:32 98 Nasal Cannula 2.0 28 01/21/17 20:31 92 20 Nasal Cannula 2.0 28 01/21/17 20:00 90 01/21/17 20:00 97.3 97 20 145/71 95 Nasal Cannula 2.0 Intake and Output 01/21/17 01/22/17 19:00 07:00 Intake Total 752.5 ml 110.0 ml Output Total 500 ml Balance 252.5 ml 110.0 ml Intake Oral 560 ml IV Total 192.5 ml 110.0 ml Output Urine Total 500 ml # Voids 2 General Appearance: WD/WN HEENT: normocephalic, atraumatic Respiratory/Chest: chest wall non-tender, lungs clear Breasts: no masses Cardiovascular: normal peripheral pulses Abdomen: normal bowel sounds, soft, non tender Extremities: no cyanosis Microbiology Date/Time Source Procedure Growth Status 01/20/17 17:30 Sputum Gram Stain - Final Resulted 01/20/17 17:30 Sputum Sputum Culture Pending Resulted 01/19/17 23:45 Nasal Nares MRSA Culture - Final NO METHICILLIN RESISTANT STAPH AUREUS... Complete Laboratory Tests 01/22/17 05:30: White Blood Count 11.7H, Red Blood Count 3.86L, Hemoglobin 12.1, Hematocrit 40.9 , Mean Corpuscular Volume 106H, Mean Corpuscular Hemoglobin 31.3H, Mean Corpuscular Hemoglobin Concent 29.6L, Red Cell Distribution Width 13.9, Platelet Count 196, Mean Platelet Volume 7.0, Neutrophils (%) (Auto) 82.7H, Lymphocytes (%) (Auto) 9.2L, Monocytes (%) (Auto) 6.8, Eosinophils (%) (Auto) 0.0, Basophils (%) (Auto) 1.3, Sodium Level 143, Potassium Level 3.7, Chloride Level 93L, Carbon Dioxide Level 45*H, Anion Gap 5, Blood Urea Nitrogen 17, Creatinine 0.9, Estimat Glomerular Filtration Rate > 60, Glucose Level 100, Calcium Level 9.6, Total Bilirubin < 0.2, Aspartate Amino Transf (AST/SGOT) 12, Alanine Aminotransferase (ALT/SGPT) 8, Alkaline Phosphatase 49, Pro-B-Type Natriuretic Peptide 129H, Total Protein 6.7, Albumin 3.9, Globulin 2.8, Albumin/ Globulin Ratio 1.3 Current Medications Medications (Trade) Dose Ordered Sig/Moose Route PRN Reason Start Time Stop Time Status Last Admin Dose Admin Albuterol/ Ipratropium (DuoNeb 0.5-3(2.5)mg/3ml) 3 ml Q4H PRN HHN dyspnea 01/21/17 22:30 01/26/17 22:29 Dextrose (Dextrose 50%) STAT PRN IV Hypoglycemia 01/21/17 22:30 02/20/17 22:29 Heparin Sodium (Porcine) (Heparin 5000 units/ml) 5,000 units EVERY 12 HOURS SUBQ 01/21/17 21:00 02/20/17 20:59 01/22/17 08:23 Lorazepam (Ativan 2mg/ml 1ml) 0.5 mg Q4H PRN IV For Anxiety 01/21/17 22:30 01/28/17 22:29 Methylprednisolone Sodium Succinate (Solu-MEDROL) 60 mg DAILY IV 01/22/17 09:00 02/21/17 08:59 01/22/17 08:22 Morphine Sulfate (Morphine Sulfate) 2 mg Q4H PRN IVP severe pain 7-10 01/21/17 22:30 01/28/17 22:29 Nitroglycerin (Ntg) 0.4 mg Q5M X 3 DOSES PRN SL Prn Chest Pain 01/21/17 20:15 02/20/17 20:14 Ondansetron HCl (Zofran) 4 mg Q6H PRN IVP Nausea & Vomiting 01/21/17 22:30 02/20/17 22:29 Piperacillin Sod/ Tazobactam Sod/ Dextrose (Zosyn/D5W) 110 ml @ 27.5 mls/hr EVERY 8 HOURS IVPB 01/21/17 22:00 01/28/17 21:59 01/22/17 16:16 Promethazine HCl/ Codeine (Phenergan with Codeine) 5 ml Q6H PRN ORAL cough 01/21/17 22:30 02/20/17 22:29 Temazepam (Restoril) 15 mg HSPRN PRN ORAL Insomnia 01/21/17 22:30 01/28/17 22:29 Theophylline (Bro-Dur) 100 mg EVERY 12 HOURS ORAL 01/21/17 21:00 02/20/17 20:59 01/22/17 08:22 KAYLI FARIAS Jan 22, 2017 19:28
--- NOTE | 2017-01-22 22:15 | Progress Note ---
DATE: 01/22/2017 SUBJECTIVE: The patient's mental condition is unchanged since previous encounter. The patient is stable. Compliant with medication. Cooperative and pleasant. No behavior issues. MENTAL STATUS EXAMINATION: The patient is alert and oriented x4. Mood is neutral. Affect is constricted. Congruent mood. Thought process is linear. Thought content, there is no suicidal or homicidal ideation. Cognition is intact. ASSESSMENT: Anxiety disorder. PLAN: 1. The patient will be continued on Ativan as needed. 2. We will continue to follow and readjust the medications. Carl Garcia M.D. DR: ROBERT JOB#: [id number] CC:
--- NOTE | 2017-01-23 08:04 | General Progress Note ---
Assessment/Plan Problem List: (1) COPD with acute exacerbation ICD Codes: J44.1 - Chronic obstructive pulmonary disease with (acute) exacerbation SNOMED: 509532386 (2) Purulent bronchitis ICD Codes: J41.1 - Mucopurulent chronic bronchitis SNOMED: 29477741 (3) Pulmonary HTN ICD Codes: I27.2 - Other secondary pulmonary hypertension SNOMED: 27644115 (4) Chronic hypoxemic respiratory failure ICD Codes: J96.11 - Chronic respiratory failure with hypoxia SNOMED: 654588870 (5) Pickwickian syndrome ICD Codes: E66.2 - Morbid (severe) obesity with alveolar hypoventilation SNOMED: 507353181 Status: stable Assessment/Plan Appreciate pulm and cardiology rec's Cont abx and steroids per pulm Nebs ATC and PRN BiPAP qHS and PRN Cont O2, titrate to spO2 88-92% Cont home meds DC planning for today DVT Prophylaxis: SCD, HSQ Code Status: Full Hospital Classification Declaration: Based on this initial evaluation, and depending on the patient's clinical course, I anticipate that this patient will require hospitalization for 1-2 days for COPD exacerbation and close respiratory /hemodynamic monitoring. Disposition: Once the patient is stable to leave the hospital, I anticipate the patient will likely be discharged to the following environment: home with HH vs SNF I spent 40 minutes on this patient's case, and 24 minutes were dedicated to counseling and/or care coordination. Discussed with patient/family, nursing staff, SW/CM, pulm, cardiology regarding clinical status, treatment course, and disposition planning. Time of note may not reflect time of encounter. Subjective Date patient seen: Jan 22, 2017 Time patient seen: 09:20 ROS Limited/Unobtainable: No Constitutional: Reports: no symptoms HEENT: Reports: no symptoms Cardiovascular: Reports: no symptoms Respiratory: Reports: shortness of breath Gastrointestinal/Abdominal: Reports: no symptoms Genitourinary: Reports: no symptoms Neurologic/Psychiatric: Reports: no symptoms Endocrine: Reports: no symptoms Hematologic/Lymphatic: Reports: no symptoms Allergies: Coded Allergies: No Known Allergies (Unverified , 01/19/17) Subjective Pt doing well. SOB improving. Anticipating d/c today Objective Last 24 Hour Vital Signs Date Time Temp Pulse Resp B/P Pulse Ox O2 Delivery O2 Flow Rate FiO2 01/22/17 16:19 97.9 90 19 151/79 94 Nasal Cannula 2.0 01/22/17 12:00 98.2 86 18 152/78 93 Nasal Cannula 01/22/17 09:14 98 Nasal Cannula 2.0 01/22/17 09:14 Nasal Cannula 2.0 01/22/17 09:13 86 20 Nasal Cannula 2.0 Height (Feet): 5 Height (Inches): 7.00 Weight (Pounds): 170 Objective General: alert, cooperative, no distress, appears stated age Head: normocephalic, without obvious abnormality, atraumatic Eyes: conjunctivae/corneas clear. PERRL, EOM's intact Throat: lips, mucosa, and tongue normal. MMM Neck: supple, symmetrical, trachea midline, and no JVD Lungs: clear to auscultation bilaterally Heart: regular rate and rhythm, S1, S2 normal, no murmur, click, rub or gallop Abdomen: soft, non-tender, non-distended, bowel sounds normal; no masses or organomegaly Extremities: extremities normal, atraumatic, no cyanosis or edema Pulses: 2+ and symmetric Skin: skin color, texture, turgor normal; no rashes or lesions Neurologic: grossly normal, no focal deficits Jazmin Alvarez M.D. Jan 23, 2017 08:04
--- NOTE | 2017-01-23 17:38 | Discharge Summary ---
Discharge Summary Hospital Course Date of Admission Jan 19, 2017 at 21:48 Date of Discharge Jan 22, 2017 at 19:00 Admitting Diagnosis COPD exac HPI Vanita Hernandez is a 71 year old female who was admitted on Jan 19, 2017 at 21: 48 for Chronic Obstructive Pulmonary Disease Exacerbation Hospital Course [id number] Discharge Discharge Disposition Patient was discharged to Home (01) Discharge Diagnoses: Elav Vickers NP Jan 23, 2017 17:38
--- NOTE | 2017-01-24 | Discharge Summary 2 SIG ---
DATE OF ADMISSION: 01/19/2017 DATE OF DISCHARGE: 01/22/2017 CONSULTANTS: 1. Jazmin Alvarez M.D. 2. Carl Garcia M.D. 3. Quirino Gallo M.D. BRIEF HOSPITAL COURSE: The patient is a 71-year-old female with history of COPD who is a smoker presented to the ER by paramedics with chief complaint of shortness of breath for few days. Denied fever or chills or flu-like symptoms. She has a known COPD and is on 5 liters O2 nasal cannula at home. On evaluation at ED, showed hypoxia, 87% oxygen saturation on room air. Labs showed mild elevation on CO2 at 42. Chest x-ray was negative for pneumonia. EKG showed right atrial enlargement, otherwise, no acute changes. Chest x-ray showed no consolidation, no effusion, no pneumothorax, no acute cardiopulmonary disease, no obvious pneumonia. She was given breathing treatment. She was admitted to telemetry for COPD exacerbation and was given IV steroids and Zosyn. She was seen by Dr. Gallo. ProBNP was 347, which was a component of congestive heart failure, suspect from her underlying lung tissue. She was continued on her usual cardiac medications. She was continued on respiratory treatments and theophylline. She was also seen by Dr. Garcia, diagnosed to have anxiety disorder, and was given p.r.n. Ativan. She has stable anxiety disorder and was adamant against being started on a new medication. She had an echocardiogram done that showed ejection fraction of 60% to 65%. She was assessed to be not in heart failure. Respiratory status improved. She was advised need for close outpatient followup for severe pulmonary hypertension as the patient will always be short of breath. RVSP was 83. She was discharged home to follow-up with PMD. DISPOSITION: The patient was discharged home. FINAL DIAGNOSES: 1. Acute chronic obstructive pulmonary disease exacerbation. 2. Purulent bronchitis. 3. Severe pulmonary hypertension. 4. Chronic hypoxemic respiratory failure. 5. Pickwickian syndrome/morbid obesity with alveolar hypoventilation. 6. Anxiety disorder. 7. Cardiomegaly. 8. History of systemic hypertension. 9. History of diastolic dysfunction. 10. Mixed pulmonary function testing abnormality. 11. Undifferentiated connective tissue disease as a possibility. Kevan Pozo M.D. I have been assigned to dictate discharge summary on this account and I was not involved in the patient's management. Elva Vickers N.P. DR: TAMI JOB#: [id number] CC: JODY
== END 2017-01-22 19:00 | disposition home or self-care (01) | DRG 191 ==
LOC: EDBD 20:27 → EMR 21:45 → 2E 21:48 → EDBEDREQ 22:09 → 2E 22:56 → 4E 01-21 20:40
DX: J44.1 Chronic obstructive pulmonary disease with (acute) exacerbation (principal); E66.2 Morbid (severe) obesity with alveolar hypoventilation; J96.11 Chronic respiratory failure with hypoxia; I50.30 Unspecified diastolic (congestive) heart failure; I27.2 Other secondary pulmonary hypertension; I51.7 Cardiomegaly; J41.1 Mucopurulent chronic bronchitis; Z68.26 Body mass index [BMI] 26.0-26.9, adult; F41.9 Anxiety disorder, unspecified; M35.9 Systemic involvement of connective tissue, unspecified; Z86.718 Personal history of other venous thrombosis and embolism; Z87.891 Personal history of nicotine dependence
CPT/HCPCS: 36415; 71010; 80053; 82550; 82553; 83880; 84484; 85007; 85025; 87070; 87081; 87205; 93005; 93306; 94664; 94760